=== PATIENT | male | born 1960 | race Caucasian/White ===

== ENCOUNTER 2018-07-29 18:22 | Emergency (ER) | payer SELFPAY ==
[~2018-07-29] VITALS: Ht 175.3 cm; Wt 72.0 kg
[2018-07-29] MEDS ORDERED: SODIUM CHLORIDE 0.9% 1,000 ML IV ONE (20:07)
[2018-07-29] MEDS ORDERED: ONDANSETRON HCL 4MG/2ML INJ IV STA (20:07)
[2018-07-29] MEDS ORDERED: HYDRALAZINE 20MG/ML VIAL IV ONE (20:15)
[2018-07-29] MEDS ORDERED: IBUPROFEN 600MG TABLET PO ONE (20:15)
[2018-07-29 20:36] LABS: HEMATOCRIT. 37.4 % (42.0-52.0); HEMOGLOBIN. 12.7 g/dL (14.0-18.0); MEAN CORPUSCULAR HEMOGLOBIN 28.5 pg (28.0-32.0); MEAN CORPUSCULAR VOLUME 84.2 fL (80.0-94.0); MEAN PLATELET VOLUME 10.7 fl (7.4-10.4); PLATELET 183 x1000/uL (130-400); RED BLOOD CELL COUNT 4.45 mill/uL (4.7-6.1); RED CELL DISTRIBUTION WIDTH 14.2 % (11.6-14.6)
[2018-07-29 20:39] LABS: CHLORIDE 102 mEq/L (98-107)
[2018-07-29 20:52] LABS: PLATELET ESTIMATE NORMAL
[2018-07-29 23:07] VITALS: BP 151/67
== END 2018-07-29 23:12 | disposition home or self-care (01) ==
LOC: ER 21:52
DX: R42 Dizziness and giddiness (principal); I10 Essential (primary) hypertension; M54.2 Cervicalgia; E11.65 Type 2 diabetes mellitus with hyperglycemia
CPT/HCPCS: 36415; 71045; 80053; 82962; 84484; 85025; 93005; 96361; 96374; 96375; 99284; J0360; J2405; J7030; Z7610

== ENCOUNTER 2023-11-16 15:14 | Emergency (ER) | payer MEDICAID ==
[~2023-11-16] VITALS: Ht 170.2 cm; Wt 68.0 kg
[~2023-11-16 15:14] MED LIST: AMLO5TAB88 PO; HYDR100T31 PO; LABE200T9 PO; LIP40 PO; MINO2.5T19 PO; NIFE90TA60 PO
[2023-11-16 15:24] VITALS: BP 118/47; PULSE 57; RESP 16; TEMP 98.3; O2SAT 98
[2023-11-16 16:23] LABS: HEPATITIS B SURFACE AB < 3.1 mIU/mL (<10)
[2023-11-16 16:35] LABS: HEPATITIS B SURFACE ANTIGEN NEGATIVE (Negative)
[2023-11-16 16:55] LABS: HEPATITIS A AB IGM NEGATIVE (Negative)
[2023-11-16 16:56] LABS: HEPATITIS B CORE AB IGM NEGATIVE (Negative)
[2023-11-16 16:57] LABS: HEPATITIS C AB NON REACTIVE (Neg) (Negative)
== END 2023-11-16 20:18 | disposition home or self-care (01) ==
LOC: ER 15:14
DX: I12.0 Hypertensive chronic kidney disease with stage 5 chronic kidney disease or end stage renal disease (principal); E11.22 Type 2 diabetes mellitus with diabetic chronic kidney disease; Z99.2 Dependence on renal dialysis; Z79.899 Other long term (current) drug therapy
CPT/HCPCS: 36415; 71045; 86705; 86706; 86709; 87340; 99284